=== PATIENT | male | born 1975 | race African-American/Black ===

== ENCOUNTER 2018-04-26 09:40 | Day surgery (SDC) | payer OTHER ==
--- NOTE | 2018-04-19 20:20 | HP ---
AMENDED REPORT NOW INCLUDES COSIGNER DESIGNATION - ESIGNED BEFORE ADJUSTMENT PREOPERATIVE HISTORY AND PHYSICAL: DATE OF ADMISSION/SURGERY: 04/26/18 DATE OF OFFICE VISIT/ENCOUNTER: 04/17/18 ATTENDING SURGEON: Angela Farah MD * (DICTATED BY HARJEET GUERRA) PROCEDURE: Left thumb ulnar collateral ligament repair, left wrist de Quervain' s release. CHIEF COMPLAINT: Left thumb injury and left wrist pain. HISTORY OF PRESENT ILLNESS: This is a 42-year-old male, who works with developmentally disabled people. 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 He does not recall anything specific happening, but the client was holding onto his thumb and he said after that he had pain in his thumb. He was seen on 2 or 3 occasions by an orthopedist in [place]. He had some x-rays and an MRI. The MRI by its reading says he has an ulnar collateral ligament tear of his carpometacarpal joint of the left thumb. The patient's pain is rather vague in location, all around the base of the thumb. He has also been having pain located on the radial aspect of the wrist. He has been wearing a wrist brace. He has failed a cortisone injection for de Quervain's tenosynovitis and appears on exam to have laxity of the ulnar collateral ligament at the MP joint of the thumb. He has consented to proceed with surgical intervention at this time in the form of a left thumb ulnar collateral ligament repair and left wrist de Quervain's release. PAST MEDICAL HISTORY: Unremarkable. PAST SURGICAL HISTORY: 1. Left knee arthroscopy. 2. Left Achilles tendon repair. CURRENT MEDICATIONS: None. ALLERGIES: No known drug allergies. FAMILY MEDICAL HISTORY: Noncontributory. SOCIAL HISTORY: The patient works at [email or web address]. He is a current smoker. He says he smokes occasionally approximately 1 to 2 cigarettes every 3 days. He denies recreational drug use. He does drink alcohol on occasion. REVIEW OF SYSTEMS: Negative for general, cephalic, cardiovascular, respiratory , GI, , other musculoskeletal, integumentary, neurologic, endocrine, and hematologic symptoms. Infectious Disease: Negative for history of MRSA, hepatitis C, HIV. PHYSICAL EXAMINATION GENERAL: Well-developed, well-nourished, 42-year-old male, in no acute distress. VITAL SIGNS: Height 6 feet 1 inch, weight 285 pounds. Pulse rate 78, blood pressure 138/80. HEENT: Normocephalic, atraumatic. Pupils are equal, round, and reactive to light and accommodation. Extraocular movements are intact. Throat is clear. NECK: Supple. No palpable lymph nodes. PULMONARY: Lungs are clear to auscultation bilaterally. No wheezes, rales, or rhonchi. CARDIOVASCULAR: Regular rate and rhythm. S1, S2. No murmurs, rubs, or gallops. No edema. ABDOMEN: Positive bowel sounds. Soft, nontender. NEUROLOGICAL: Alert and oriented x3. Cranial nerves II through XII are intact. Sensation is intact to light touch. MUSCULOSKELETAL: On exam of his left upper extremity, he has tenderness at the thumb MP joint, CMC joint, and the radial styloid. He has pain with Andrew 's testing. He does not have pain with a grind test. He has laxity of his ulnar collateral ligament at the MP joint and pain upon stressing the ligament. He has mildly limited range of motion in full opposition. Skin is intact. Neurovascular function is intact. IMAGING STUDIES: MRI of the left hand is read by the radiologist, who says that there is a tear in the ulnar collateral ligament at the CMC joint. IMPRESSION: Left thumb ulnar collateral ligament injury and left de Quervain's tenosynovitis. PLAN: The patient is scheduled to undergo a left thumb ulnar collateral ligament repair and a left wrist de Quervain's release with Dr. Farah on . He will return to the office 10 days postop for followup and suture removal. A prescription for Ultracet was e-scribed to the patient's pharmacy for postoperative pain management. HARJEET GUERRA [id number]/[facility] #: [id number] MTDD
[~2018-04-26 09:40] MED LIST: Acetaminophen TAB* 325 MG PO PRN; Buffered Lidocaine 0.9% SYRIN* 5 ML/SYR SYRINGE INTRADERM ONE; DiMENhydriNATE IV* 50 MG/ML VIAL IV PUSH PRN; HYDROcodone/ACETAMIN 5-325 MG* 1 TAB PO PRN; Morphine INJ* 2 MG/ML 1 ML SYRINGE (TWO MG - NEW SYRINGE VERSION) IV PRN; Naloxone* 0.4 MG/ML 1 ML VIAL IV PRN; Ondansetron INJ* 2 MG/ML VIAL IV PRN; fentaNYL* 50 MCG/ML 2 ML VIAL (100 MCG VIAL) IV PRN
[2018-04-26] MEDS ORDERED: ceFAZolin 2 GM PREMIX (*) 2 GM/50 ML BAG IVPB ONE (09:51)
[2018-04-26] MEDS ORDERED: fentaNYL* 50 MCG/ML 2 ML VIAL (100 MCG VIAL) ONE (11:18)
[2018-04-26] MEDS ORDERED: Midazolam* 1 MG/ML 2 ML VIAL (2 MG) ONE (11:18)
[2018-04-26] MEDS ORDERED: Propofol* 10 MG/ML 20 ML BTL IV PUSH ONE (11:46)
[2018-04-26] MEDS ORDERED: Lidocaine 2% PF * 5 ML VIAL ONE (11:46)
[2018-04-26] MEDS ORDERED: Succinylcholine* 20 MG/ML 10 ML VIAL ONE (12:02)
[2018-04-26 13:18] VITALS: BP 145/94
--- NOTE | 2018-04-26 22:52 | OP ---
DATE OF OPERATION: 04/26/18 - [facility] DATE OF : 71 SURGEON: Angela Farah MD EXTRUDER OPERATOR HORIZONTAL: HARJEET Mckoy ANESTHESIA: General. PRE-OP DIAGNOSES: Left de Quervain's tenosynovitis and ulnar collateral ligament tear of the thumb. POST-OP DIAGNOSES: Left de Quervain's tenosynovitis and ulnar collateral ligament tear of the thumb. OPERATIVE PROCEDURE: Left de Quervain's release and left thumb ulnar collateral ligament repair. INDICATIONS FOR PROCEDURE: Ben is a 42-year-old man who was injured at work. He has de Quervain's tenosynovitis and a thumb ulnar collateral ligament tear. He presents for repair of the ligament and de Quervain's release. ESTIMATED BLOOD LOSS: Zero. TOURNIQUET TIME: About 30 minutes. DESCRIPTION OF PROCEDURE: The patient was brought to the operating room, was given a general anesthetic and placed in the supine position on the operating table with a tourniquet around his left forearm. The skin of his left hand and forearm was prepped and draped in the usual sterile fashion. The hand and forearm were exsanguinated and the tourniquet elevated to 250 mmHg. A longitudinal incision was made centered at the tip of the radial styloid and we dissected bluntly through the subcutaneous tissue down to the first dorsal compartment. The branches of radial sensory nerve were located and retracted by the customer service assistant, Yuko Simmons, whose assistance in this case was essential for safe completion and protection of the nerves. The first dorsal compartment was incised longitudinally, completely releasing the APL and EPB tendons, which were in good condition. There was a mild amount of tenosynovitis and this was debrided. The wound was irrigated and the skin edges reapproximated with 4-0 nylon suture. Next, a longitudinal incision was made on the ulnar aspect of the thumb MP joint. We dissected bluntly through the subcutaneous tissue again locating branches of the radial sensory nerve, which were protected by the customer service assistant, Yuko Simmons. The adductor aponeurosis was incised longitudinally and then the insertion of the ulnar collateral ligament on the distal phalanx was debrided from the distal phalanx and it healed in a markedly stretched out position. The distal phalanx was curetted down to bare-bone and then 2 holes were drilled for mini Mitek suture anchors. The anchors were placed in the proximal phalanx and then the sutures were used to pass through the ligamentous tissue and these were tied down. This gave excellent stability against radial deviation for the thumb MP joint. The wound was irrigated and the adductor aponeurosis was repaired with 2-0 Ethibond suture. The skin edges were reapproximated with 4-0 nylon suture. The wounds were dressed with Xeroform, 4x4, Webril, and a thumb spica splint. The patient tolerated the procedure well and was brought to the recovery room in good condition. [id number]/[facility] #: [id number] [place]
== END 2018-04-26 13:39 | disposition home or self-care (01) ==
LOC: OREAST 09:40
PROVIDERS: ATTEND Orthopaedic Surgery
DX: S63.642A Sprain of metacarpophalangeal joint of left thumb, initial encounter (principal); M65.4 Radial styloid tenosynovitis [de Quervain]; Z72.0 Tobacco use; X50.0XXA Overexertion from strenuous movement or load, initial encounter; Y92.9 Unspecified place or not applicable; R73.03 Prediabetes; E66.01 Morbid (severe) obesity due to excess calories; J30.89 Other allergic rhinitis
CPT/HCPCS: C1713; J0330; J0690; J2250; J2704; J3010